=== PATIENT | female | born 1980 | race African-American/Black ===

== ENCOUNTER 2017-02-17 13:46 | Emergency (ER) | payer BC ==
[~2017-02-17] VITALS: Ht 152.4 cm; Wt 75.0 kg
[~2017-02-17 13:46] MED LIST: ATRO0.03; ERGO50000 PO; HYCOS PO; ORTHTAB2 PO; PANT20 PO; VITA80005 PO
[2017-02-17 13:49] VITALS: BP 127/79; PULSE 80; RESP 16; TEMP 98.5; O2SAT 98
[2017-02-17] MEDS ORDERED: MOME17I EACH NARE (15:36)
[2017-02-17] MEDS ORDERED: BENZ100 PO (15:36)
[2017-02-17] MEDS ORDERED: AUGM875T3 PO (15:36)
--- NOTE | 2017-02-17 15:37 | PD ---
HPI Chief Complaint: Cold / Flu Symptoms Time Seen by Provider: 15:23 Travel History International Travel<30 days: No Contact w/Intl Traveler<30days: No Traveled to known affect area: No History of Present Illness HPI 37 year-old female presents first part of for evaluation of sinus pressure, facial pain, cough and congestion worsening over the last week. Patient states last week almost 2 weeks ago, she felt as though her allergies were acting up. She took [id number] antihistamine and sinus medication and things seemed to improve utterly but never went away. She continued to use the over-the- counter products and then noticed symptoms worsening approximately a week ago and now she's having significant facial pain. It is mostly over her maxillary sinuses. It is moderate in severity and throbbing. It is constant. She also has throbbing in her ears. Denies any fever or chills. She has a cough but feels as though this is from postnasal drip. Denies nausea or vomiting. No other symptoms to report. PFSH Past Medical History Asthma: Yes Cancer: No Cardiovascular Problems: No Diminished Hearing: No Endocrine: No Genitourinary: No Immune Disorder: No Musculoskeletal: No Neurologic: No Psychiatric: No Reproductive: No Respiratory: Yes (BRONCHITIS) ?: Unknown : 3 Para: 1 Past Surgical History Abdominal Surgery: Yes (LAP GASTRIC BYPASS, LAP MI (THIS ADMISSION Mar)) Section: Yes Gynecologic Surgery: Yes Other Surgery: Yes Social History Alcohol Use: No Tobacco Use: No Substance Use: No Allergies-Medications (Allergen,Severity, Reaction): Coded Allergies: No Known Allergies (Verified , 10/04/15) Reported Meds & Prescriptions Reported Meds & Active Scripts Active Tessalon Perles (Benzonatate) 100 Mg Cap 200 Mg PO TID PRN Nasonex Nasal [place] (Mometasone Furoate) 50 Mcg/Act Naspr 2 [place] EACH NARE DAILY Augmentin (Amoxicillin-Clavulanate) 875-125 Mg Tab 1 Tab PO BID 10 Days Hycodan (Hydrocodone Bit/Homatropine Methylb) 480 Ml Syrp 5-10 Ml PO Q4-6H PRN FOR COUGH AND/OR PAIN Atrovent Nasal (Ipratropium [place]) 0.03 % Mary 2 Spr NA Q8HR NEB 10 Days Ortho Tri-Cyclen (Norgestimate-Ethinyl Estradiol) Cyclen Tab 1 Tab PO DAILY 28 Days Reported Vitamin A 8,000 Unit Cap 16,000 Unit PO DAILY Vitamin D / Drisdol 50,000 Units (Ergocalciferol) 50,000 Units Cap 1 Cap PO Q7D Protonix (Pantoprazole Sodium) 20 Mg Tabdr 20 Mg PO DAILY Review of Systems Except as stated in HPI: all other systems reviewed are Neg Physical Exam Narrative GENERAL: Well-nourished, well-developed female patient in no acute distress SKIN: Focused skin assessment warm/dry. HEAD: Normocephalic. Tenderness elicited palpation of the maxillary sinuses. EYES: No scleral icterus. No injection or drainage. ENT: Mucosa pink and moist. Cervix is mild erythema, no exudates. Postnasal drip noted.. No uvular edema. No uvular, palatal, or tonsillar deviation. Airway patent. Nasal turbinates appear inflamed without nasal blood, purulent drainage or septal hematoma. NECK: Supple, trachea midline. No JVD or lymphadenopathy. CARDIOVASCULAR: Regular rate and rhythm without murmurs, gallops, or rubs. RESPIRATORY: Breath sounds equal bilaterally. No accessory muscle use. GASTROINTESTINAL: Abdomen soft, non-tender, nondistended. MUSCULOSKELETAL: No cyanosis, or edema. BACK: Nontender without obvious deformity. No CVA tenderness. Data Data Last Documented VS Vital Signs Date Time Temp Pulse Resp B/P (MAP) Pulse Ox O2 Delivery O2 Flow Rate FiO2 02/17/17 15:43 02/17/17 13:49 98.5 80 16 98 Orders Orders Ed Discharge Order (02/17/17 15:37) [facility] Medical Decision Making Medical Screen Exam Complete: Yes Emergency Medical Condition: Yes Medical Record Reviewed: Yes Differential Diagnosis Sinusitis viral versus bacterial versus common cold versus allergies Narrative Course 37 year-old female presents to emergency department for evaluation. Patient has had sinus symptoms for 2 weeks now with significant worsening over the last week and facial pain. Based on symptoms, moderate improvement with over-the- counter remedies, with acute worsening, I feel the patient would benefit from antibiotic for likely sinus infection. Patient is counseled on care. She is encouraged to follow-up with a primary care provider. She agrees to return immediately with any acute worsening symptoms. Diagnosis Primary Impression: Sinusitis Qualified Codes: J01.00 - Acute maxillary sinusitis, unspecified Referrals: Primary Care Physician Patient Instructions: General Instructions, Upper Respiratory Infection (ED) Additional Instructions: Humidified air may help to alleviate symptoms Follow-up with a primary care provider Tylenol and/or ibuprofen asked her to the package as needed for pain Return immediately to the emergency department with any acute worsening of symptoms Med/Other Pt SpecificInfo: Prescription(s) given Scripts Benzonatate (Tessalon Perles) 100 Mg Cap 200 MG PO TID Y for COUGH, #20 CAP 0 Refills Prov: Claudia Madrigal 02/17/17 Mometasone Nasal [place] (Nasonex Nasal [place]) 50 Mcg/Act Naspr 2 SPRAY EACH NARE DAILY for Allergy Management, #1 BOTTLE 0 Refills Prov: Claudia Madrigal 02/17/17 Amoxicillin-Clavulanate (Augmentin) 875-125 Mg Tab 1 TAB PO BID for Infection for 10 Days, #20 TAB 0 Refills Prov: Claudia Madrigal 02/17/17 Disposition: 01 DISCHARGE HOME Condition: Stable Claudia Madrigal Feb 17, 2017 15:36
== END 2017-02-17 15:45 | disposition home or self-care (01) ==
LOC: NEPK 13:46
DX: J01.00 Acute maxillary sinusitis, unspecified (principal); R05 Cough; Z87.09 Personal history of other diseases of the respiratory system
CPT/HCPCS: 99284